=== PATIENT | female | born 1975 | race Caucasian/White ===

== ENCOUNTER 2017-12-28 14:55 | Outpatient (CLI) | payer BC ==
--- NOTE | 2017-12-30 13:40 | MMO ---
BILATERAL DIGITAL SCREENING MAMMOGRAMS: History: 42-year-old female presents for digital screening mammography. Comparison: 06-22-13 FINDINGS: This study is interpreted with the assistance of computer aided detection. Scattered areas of fibroglandular density noted bilaterally. Stable typically benign calcifications. Biopsy clip in the upper outer left breast adjacent to what appears to be an area of fat necrosis. IMPRESSION: BIRADS category 2 - benign findings. Continued routine screening. Stable typically benign calcificati ons. Area of fat necrosis in the upper outer left breast with an adjacent biopsy clip. POS: BERE
== END 2017-12-28 14:56 | disposition home or self-care (01) ==
LOC: SCSMAMMO 14:55
PROVIDERS: ATTEND Obstetrics & Gynecology
DX: Z12.31 Encounter for screening mammogram for malignant neoplasm of breast (principal); R92.1 Mammographic calcification found on diagnostic imaging of breast
CPT/HCPCS: 77067

== ENCOUNTER 2019-01-05 08:15 | Outpatient (CLI) | payer BC ==
--- NOTE | 2019-01-05 11:09 | MMO ---
Bilateral MAMMO Bilat Screen DDI. CLINICAL HISTORY: Patient is 43 years old and is seen for screening. The patient has no family history of breast cancer. The patient has no personal history of cancer. VIEWS: The views performed were: bilateral craniocaudal and bilateral mediolateral oblique. FILMS COMPARED: The present examination has been compared to prior imaging studies performed at [facility] on 12/28/2017, and at [facility] on 06/22/2013. This study has been interpreted with the assistance of computer-aided detection. MAMMOGRAM FINDINGS: There are scattered fibroglandular densities. Finding 1: There are stable benign appearing calcifications seen in both breasts. Finding 2: There is a stable biopsy clip seen in the left breast. There are no suspicious masses, suspicious calcifications, or new areas of architectural distortion. IMPRESSION: THERE IS NO MAMMOGRAPHIC EVIDENCE OF MALIGNANCY. A ROUTINE FOLLOW-UP MAMMOGRAM IN 1 YEAR IS RECOMMENDED. ACR BI-RADS Category 2 - Benign finding MAMMOGRAPHY NOTE: 1. A negative mammogram report should not delay a biopsy if a dominant of clinically suspicious mass is present. 2. Approximately 10% to 15% of breast cancers are not detected by mammography. 3. Adenosis and dense breasts may obscure an underlying neoplasm. Reported by: KAVON SRINIVASAN MD Electonically Signed: [id number]
== END 2019-01-05 08:16 | disposition home or self-care (01) ==
LOC: SCSMAMMO 08:15
PROVIDERS: ATTEND Obstetrics & Gynecology
DX: Z12.31 Encounter for screening mammogram for malignant neoplasm of breast (principal)
CPT/HCPCS: 77067

== ENCOUNTER 2019-12-29 10:07 | Outpatient (CLI) | payer BC | END 2019-12-29 10:08 | disposition home or self-care (01) | LOC: DTY/OP 10:07 | PROVIDERS: ATTEND Specialist | DX: Z01.818 Encounter for other preprocedural examination (principal); E66.01 Morbid (severe) obesity due to excess calories | CPT/HCPCS: 97802 ==

== ENCOUNTER 2020-04-08 06:14 | Outpatient (CLI) | payer BC, OTHER ==
[2020-04-09 11:35] LABS: SARS-CoV-2 MS2 Positive; SARS-CoV-2 N Gene Negative; SARS-CoV-2 S Gene Negative; SARS-CoV-2 by NAA Not Detected (NotDetected); SARS-CoV-2 orf1ab Negative
--- NOTE | 2020-04-09 14:50 | EKG ---
Test Reason : Blood Pressure : / mmHG Vent. Rate : 056 BPM Atrial Rate : 056 BPM P-R Int : 146 ms QRS Dur : 082 ms QT Int : 412 ms P-R-T Axes : 037 031 031 degrees QTc Int : 397 ms Sinus bradycardia Otherwise normal ECG No previous ECGs available Confirmed by SARAH HANNAH (2) on 04/09/2020 2:50:19 PM Referred By: MARIA DE JESUS Confirmed By:SARAH HANNAH
== END 2020-04-08 06:15 | disposition home or self-care (01) ==
LOC: LABBT 06:14
PROVIDERS: ATTEND Specialist
DX: Z01.818 Encounter for other preprocedural examination (principal); Z20.828 Contact with and (suspected) exposure to other viral communicable diseases
CPT/HCPCS: 87635; 93005; 93010; U0003

== ENCOUNTER 2020-04-08 09:15 | Inpatient (IN) | payer BC, OTHER ==
[2020-04-09 15:09] VITALS: BMI 49.1
[2020-04-11] MEDS ORDERED: Acetaminophen 500 MG TAB ONE (06:24)
[2020-04-11] MEDS ORDERED: Heparin 5,000 UNITS/ML VIAL ONE (06:31)
[2020-04-11] MEDS ORDERED: Ketorolac Tromethamine 30 MG/ML VIAL ONE (06:31)
[2020-04-11] MEDS ORDERED: cefOXitin Sodium/Dextrose 2 GM/50 ML BAG ONE (06:31)
[2020-04-11] MEDS ORDERED: Scopolamine 1.5 mg/72 hour Patch ONE (06:31)
[2020-04-11] MEDS ORDERED: Fentanyl 100 MCG/2 ML VIAL ONE ×3 (06:33→10:43)
[2020-04-11] MEDS ORDERED: Bupivacaine/Epinephrine 0.25% 30 ML VIAL ONE (06:42)
[2020-04-11] MEDS ORDERED: Midazolam HCl 2 mg/2 ml Vial ONE (07:11)
[2020-04-11] MEDS ORDERED: PROPOFOL 200 MG/20 ML VIAL ONE (11:44)
[2020-04-11] MEDS ORDERED: EPHEDRINE 25 MG/5 ML SYRINGE ONE (11:44)
[2020-04-11] MEDS ORDERED: Ondansetron PF 4 MG/2 ML Vial ONE (11:44)
[2020-04-11] MEDS ORDERED: Lidocaine 1% PF 5 ML VIAL ONE (11:44)
[2020-04-11] MEDS ORDERED: Dexamethasone 20 MG/5 ML VIAL ONE (11:44)
[2020-04-11] MEDS ORDERED: Glycopyrrolate 0.2 MG/ML 5 ML SYRINGE ONE (11:44)
[2020-04-11] MEDS ORDERED: PHENYLEPHRINE-NS 100 MCG/ML 10 ML SYRINGE ONE (11:44)
[2020-04-11] MEDS ORDERED: Rocuronium Bromide 10 MG/ML (10ML VIAL) ONE (11:44)
[2020-04-11] MEDS ORDERED: Morphine 4 MG/ML VIAL SLOW IVP PRN (11:45)
[2020-04-11] MEDS ORDERED: diphenhydrAMINE 50 MG/ML VIAL IVP PRN (11:45)
[2020-04-11] MEDS ORDERED: Hydrocodone-Acetamin 15 ML UDCUP PO PRN (11:45)
[2020-04-11] MEDS ORDERED: Promethazine HCl 25 MG/ML VIAL IM PRN (11:45)
[2020-04-11] MEDS ORDERED: hydrALAZINE 20 MG/ML VIAL SLOW IVP PRN (11:45)
[2020-04-11] MEDS ORDERED: Dextrose 50% Abboject 50 ML SYRINGE SLOW IVP PRN (11:45)
[2020-04-11] MEDS ORDERED: Morphine 2 MG/ML VIAL SLOW IVP PRN (11:45)
[2020-04-11] MEDS ORDERED: Ondansetron PF 4 MG/2 ML Vial IVP PRN (11:45)
[2020-04-11] MEDS ORDERED: Dextrose 5% in Water 1,000 ML IV PRN (11:45)
[2020-04-11] MEDS: D5 1/2 NS w/20 mEq KCL 1,000 ML IV SCH ×2 (13:07→22:18)
[2020-04-11] MEDS: Ketorolac Tromethamine 30 MG/ML VIAL IVP SCH ×3 (13:07→23:08)
[2020-04-11] MEDS ORDERED: Ibuprofen 100 MG/5 ML UDCUP PO PRN ×2 (14:16→14:17)
[2020-04-11] MEDS ORDERED: Enoxaparin Sodium 40 MG/0.4 ML SYRINGE SC SCH (21:00)
[2020-04-12] MEDS: Ketorolac Tromethamine 30 MG/ML VIAL IVP SCH ×2 (05:22→11:28)
[2020-04-12] MEDS: D5 1/2 NS w/20 mEq KCL 1,000 ML IV SCH ×2 (05:28→11:23)
[2020-04-12 05:33] LABS: #Lymphocytes 3.2 thou/uL (1.20-3.40); #Monocytes 0.8 thou/uL (0.11-0.59); #Neutrophils 6.7 thou/uL (1.40-6.50); %Basophils 0.4 % (0.0-1.0); %Eosinophils 0.4 % (0.0-10.0); %Lymphocytes 29.7 % (21.0-51.0); %Monocytes 7.2 % (0.0-10.0); %Neutrophils 62.3 % (42.0-75.0); Hemoglobin 12.2 g/dL (12.0-16.0); Mean Corpuscular HGB CONC 31.9 g/dL (32.0-36.0); Mean Corpuscular Hemoglobin 26.7 pg (27.0-31.0); Mean Corpuscular Volume 83.6 fL (78.0-98.0); Platelet Count 246 thou/uL (130-400); RBC Distribution Width 14.4 % (11.5-14.5); White Blood Cell (WBC) Count 10.7 thou/uL (4.8-10.8)
[2020-04-12 06:00] LABS: Anion Gap 12 mmol/L (10-20); BUN (Urea Nitrogen) 7 mg/dL (7.0-18.7); Calc. Creatinine Clearance 204 mL/min (70-130); Calcium 8.1 mg/dL (7.8-10.44); Carbon Dioxide 21 mmol/L (22-29); Chloride 107 mmol/L (98-107); Estimated GFR-MDRD 84; Glucose 98 mg/dL (70-105); Sodium 136 mmol/L (136-145)
--- NOTE | 2020-04-12 07:51 | PDOC.GSPN ---
Surgery Progress Note: Subj - Subjective Narrative: Ms. Mustafa is a 45 year old female POD 1 laparoscopic lap band removal and sleeve gastrectomy. She was laying in bed this morning at the time of the exam and had no concerns. She had some nausea yesterday evening that passed on its own and has not returned since then. Tolerated her clear liquid diet well and has good PO intake. Has voided but not had a bowel movement or passed flatus. She has some tenderness around the incision sites but said that it's not that bad. She has been ambulating frequently and doing incentive spirometry every couple of hours. Denies shortness of breath, chest pain, headache, dizziness, vomiting, reflux, tachycardia, or palpitations. Her IV fluids had been discontinued this morning and she's been saline locked. Surgery Progress Note: Obj - Vital signs Vital signs: Vital Signs - Most Recent Temp Pulse Resp BP Pulse Ox 98.4 F 71 16 141/85 H 98 04/12/20 07:05 04/12/20 07:05 04/12/20 07:05 04/12/20 07:05 04/12/20 07:05 - Physical Exam General: no distress Cardiovascular: regular rate and rhythm Respiratory: clear to auscultation, normal expansion, normal respiratory effort, breath sounds present Abdomen: soft, nondistended, positive bowel sounds, appropriately tender Wound: healing well (no drainage or erythema around the incision sites) Surgery Progress Note: Results - Labs Result Diagrams: 04/12/20 05:11 04/12/20 05:11 Lab results: Laboratory Results - last 12 hr 04/12/20 04/12/20 05:11 05:11 WBC 10.7 RBC 4.60 Hgb 12.2 Hct 38.4 MCV 83.6 MCH 26.7 L MCHC 31.9 L RDW 14.4 Plt Count 246 MPV 8.0 Neutrophils % 62.3 Lymphocytes % 29.7 Monocytes % 7.2 Eosinophils % 0.4 Basophils % 0.4 Neutrophils # 6.7 H Lymphocytes # 3.2 Monocytes # 0.8 H Eosinophils # 0.0 Basophils # 0.0 Sodium 136 Potassium 4.0 Chloride 107 Carbon Dioxide 21 L Anion Gap 12 BUN 7 Creatinine 0.75 Estimated GFR (MDRD) 84 Glucose 98 Calcium 8.1 Surgery Progress Note: A/P - Plan Plan: Ms. Mustafa is POD 1 laparoscopic lap band removal and sleeve gastrectomy; doing well overall. 1. Continue ambulation and spirometry 2. Continue clear liquid diet 3. Continue monitoring for any signs of infections or leaks 4. Change medications from IV to PO when possible 5. Continue pain management PRN We hope to discharge the patient within the next 24 hours
[2020-04-12] MEDS ORDERED: Pantoprazole 40 MG VIAL IVP SCH (09:00)
--- NOTE | 2020-04-12 09:37 | OP ---
DATE OF PROCEDURE: 04/11/2020 PREOPERATIVE DIAGNOSIS: Morbid obesity, with failed long-term weight loss using the lap band system. POSTOPERATIVE DIAGNOSIS: Morbid obesity, with failed long-term weight loss using the lap band system. OPERATIONS PERFORMED: 1. Removal of lap band and port. 2. Laparoscopic vertical sleeve gastrectomy using the ViSiGi device. 3. Esophagogastroduodenoscopy. ANESTHESIA: General endotracheal. INDICATIONS: The patient is a 45-year-old morbidly obese white female. About 11 years ago, a lap band was placed for treatment of her obesity. At that time, she was about 360 pounds. She had very successful weight loss down to approximately 155 pounds. She thereafter had a series of problems with her band, that required adjustments, and unfortunately, she was never able to achieve the same level of success. She ended up requiring a revision of her band at another facility. She presents at this time with obvious failed weight loss related to her band and requests to convert to a sleeve gastrectomy. DESCRIPTION OF OPERATION: Informed consent was obtained. The patient was taken to the operating room where general endotracheal anesthesia was obtained with the patient in supine position. Abdomen was prepped with ChloraPrep and draped in sterile fashion. Looking at her abdomen, it was difficult to discern exactly which incisions had been used or which operations that she had had; 2 bariatric operations, gallbladder operation, and a gynecologic procedure; all of which had been done laparoscopically. I selected a 5-mm supraumbilical incision and infiltrated local anesthetic and created an incision through the same scar. A Veress needle was passed through this incision in the abdominal cavity. Pneumoperitoneum was established using carbon dioxide up to pressure of 15 mmHg. A 5 mm trocar port was passed through this same incision. Laparoscopic camera was passed through this port. There were noted to be some adhesions up to the liver as well as to the anterior abdominal wall just to the right of midline. I noted that the tubing from the lap band was disconnected from the abdominal wall. The area of the port was palpable. I made a 15-mm incision. Through the incision that I presumed had been used for port placement and a 15 mm port was placed under direct vision through this. Utilizing these 2 ports, I took down the adhesions to the anterior abdominal wall. I then placed 3 additional ports, placing 5 mm bilateral subcostal port and a 12 mm right paramedian port. I finally placed a Nikole retractor through a 5-mm epigastric incision. I was not able to fully place the Nikole retractor until after the liver was dissected, however. Attention was first turned to the liver. There were adhesions at the inferior edge of the left lobe of the liver and these were mobilized carefully. Dissection was carried out using a combination of LigaSure dissection and monopolar electrocautery. I then dissected up to the underside of the liver, which was adherent to the area of the stomach where the lap band had been placed. Careful dissection was carried out to elevate the liver off this. Some of the adhesions were fairly dense, but dissection was carried out meticulously and there was no injury to the liver or any significant blood loss. At this juncture, the Nikole retractor was placed to elevate the left lobe of the liver. Attention was then turned to the lap band. I initially freed up all of the tubing, confirming that it was entirely disconnected from the anterior abdominal wall. I then turned my attention to the lap band, beginning dissection on the right side in the area of the buckle. I was able to identify scar tissue overlying this and mobilized the scar tissue off the band. I then continued in a [id number] fashion, dissecting the gastrogastric sutures that had been placed to secure the band. This was done carefully and without injury to the stomach either above or below the band. Meticulous hemostasis was maintained during this procedure. I then was able to follow the dissection around the left side towards the diaphragmatic yasir. There was enough scar tissue in that area; however, that I could not really see everything without mobilizing the greater curvature better. I also dissected the band around the right-hand side posteriorly, freeing up the band from the surrounding capsule and the scar tissue and excising scar tissue where possible. Attention was then turned to the greater curvature of the stomach. I began 5 cm from the pylorus and using the LigaSure device, completely freed the greater curvature in an ascending fashion, maintaining meticulous hemostasis. At the superior aspect, there were significant areas of scar tissue where the greater curvature was folded posteriorly. This was all very carefully dissected until I had essentially reestablished normal gastric anatomy. I dissected up to and identified the left yasir, which was cleared. At this point, the lap band was unbuckled and removed through the 15-mm port. I dissected the scar capsule from the anterior aspect of the stomach at this level and dissected as far to the left and right lateral aspect as possible. Additional areas of bands and scar tissue were identified and entirely mobilized. There was a large area of fatty tissue that I presumed was the gastroesophageal fat pad, that had been pulled across the stomach towards the band closure and this was dissected off the upper stomach as well. At this juncture, the ViSiGi device was passed into the gastric lumen and directed towards the pylorus. It was placed to suction, and utilizing this as a guide, I performed the gastrectomy, series of fires of the [place] stapling device, utilizing a green load initially followed by a gold load and a couple of blue loads. At the point that I was transecting the area of the prior lap band, I used a gold load to have better closure of the potential scar tissue, even though this had been completely dissected and returned to normal anatomy. The transected stomach was reflected laterally. The staple line was inspected and noted to be hemostatic. I did place several hemoclips along the staple line including the most superior aspect and the most inferior aspect. Attempts were made to insufflate the stomach using the ViSiGi device, but for some reason, there was equipment dysfunction. I could not see any adequate distention. I therefore removed the ViSiGi device and decided to proceed with an endoscopy. The gastroscope was obtained and advanced uneventfully down the esophagus and into the stomach through to the level of the pylorus. There was certainly no intraluminal bleeding. There was no evidence of stenosis. There was no evidence of air leak along the staple line. The stomach was desufflated and the scope was removed. All irrigant was aspirated from within the abdominal cavity. The sleeve was inspected one final time, noted to have an entirely normal appearance after surgery. The Nikole retractor was removed. The stomach was removed from the 15-mm port site and the fascia was then closed with 0 Vicryl suture using a GraNee needle. All ports and instruments were removed under direct vision. Pneumoperitoneum was carefully evacuated. Attention was turned to the port site from the lap band port. I was able to clearly identify the port through the incision, that was carefully dissected using electrocautery. I was potentially able to grasp the tubing portion of the port and elevated this into the wound. Remaining scar tissue to the fascia was taken down with electrocautery and the port with proximal tubing was uneventfully. The wound was irrigated. The area was then closed in layers with 3-0 and 4-0 Monocryl. The other incisions were closed with 4-0 Monocryl. Dermabond was placed externally. There were no complications and potentially no blood loss during the course of the operation. The patient tolerated the procedure well and was taken to recovery room in stable condition. Job ID: [id number]
[2020-04-12 15:18] VITALS: BP 134/79; TEMP 97.7
--- NOTE | 2020-04-12 17:47 | PRG ---
DATE OF SERVICE: 04/12/2020 SUBJECTIVE: Ms. Mustafa is doing well today. Vital signs are stable. She is afebrile. Heart rate is normal. She is tolerating liquids. She has no pain. She does not take any pain medications. Her laboratories are normal. OBJECTIVE: LUNGS: Clear to auscultation. CARDIAC: Regular rate and rhythm without murmur, rub, or gallop. ABDOMEN: Soft, nontender. Bowel sounds present. Surgical wounds look good. ASSESSMENT AND PLAN: Doing well after laparoscopic adjustable band converted to a laparoscopic sleeve gastrectomy. We will discharge home today. Encouraged activity, ambulation. PPIs for 3 months, protein supplements, clear liquids, bariatric clear liquids per protocol. Follow up with Dr. Garnett in 1 to 2 weeks. Job ID: [id number]
== END 2020-04-12 15:15 | disposition home or self-care (01) | DRG 621 ==
LOC: SURG A 04-11 06:14 → SURG B 04-11 11:55
PROVIDERS: ADMIT Specialist; ATTEND Specialist
PROC: 0DB64Z3 Excision of Stomach, Percutaneous Endoscopic Approach, Vertical (ICD-10-PCS; principal; 2020-04-11)
PROC: 0DP64CZ Removal of Extraluminal Device from Stomach, Percutaneous Endoscopic Approach (ICD-10-PCS; 2020-04-11)
PROC: 0DJ08ZZ Inspection of Upper Intestinal Tract, Via Natural or Artificial Opening Endoscopic (ICD-10-PCS; 2020-04-11)
DX: E66.01 Morbid (severe) obesity due to excess calories (principal); Z68.42 Body mass index [BMI] 45.0-49.9, adult; Z90.49 Acquired absence of other specified parts of digestive tract; Z79.899 Other long term (current) drug therapy; Z88.6 Allergy status to analgesic agent; Z88.8 Allergy status to other drugs, medicaments and biological substances
CPT/HCPCS: 36415; 80048; 85025; 87635; 88307; 88312; 93005; C9113; J0694; J1100; J1644; J1650; J1885; J2250; J2405; J2704; J3010; J3480; U0003